=== PATIENT | female | born 1990 | race Caucasian/White ===

== ENCOUNTER 2024-09-09 03:21 | Emergency (ER) | payer SELFPAY ==
[~2024-09-09] VITALS: Ht 165.1 cm; Wt 65.9 kg
[2024-09-09 03:25] VITALS: BP 112/61; TEMP 97.8; O2SAT 100
[2024-09-14] MEDS ORDERED: DALV1SOL IV (12:13)
[2024-09-15] MEDS ORDERED: AMOX875T2 PO (06:28)
[2024-09-15] MEDS ORDERED: DOXY100C3 PO (06:28)
== END 2024-09-09 04:45 | disposition left against medical advice (07) ==
LOC: M ED 03:21
DX: Z53.21 Procedure and treatment not carried out due to patient leaving prior to being seen by health care provider (principal)

== ENCOUNTER 2024-09-19 12:49 | Outpatient (CLI) | payer SELFPAY ==
[~2024-09-19] VITALS: Ht 165.1 cm; Wt 65.9 kg
[~2024-09-19 12:49] MED LIST: AMOX875T2 PO; DALV1SOL IV; DOXY100C3 PO
[2024-09-19 12:55] VITALS: BP 149/93; O2SAT 100
[2024-09-19] MEDS: DALBAVANCIN 1,500 MG in D5W 250 ML IV ONE (13:37)
[2024-09-19 14:39] VITALS: BP 121/68; O2SAT 98
== END 2024-09-19 14:25 ==
LOC: M INFU 12:49
PROVIDERS: ATTEND General Practice
DX: L03.115 Cellulitis of right lower limb (principal); Z88.8 Allergy status to other drugs, medicaments and biological substances
CPT/HCPCS: 96365; J0875